=== PATIENT | female | born 1995 | race American Indian/Alaskan Native ===

== ENCOUNTER 2016-12-02 13:36 | Emergency (ER) | payer SELFPAY ==
[2016-12-02 14:07] VITALS: BP 115/77
[2016-12-02] MEDS ORDERED: NACL 0.9% IR ONE (14:53)
[2016-12-02] MEDS ORDERED: XYLOCAINE 1% 20 mL INFILTRATI ONE (14:54)
--- NOTE | 2016-12-02 14:59 | Emergency Department Report ---
ED General Adult HPI - General Chief complaint: Skin/Abscess/Foreign Body Stated complaint: BOIL Time Seen by Provider: 12/02/16 14:45 Source: patient Mode of arrival: Ambulatory Limitations: No Limitations - History of Present Illness Initial comments: Bartholin Cyst recurrent 1-2 daily Onset/Timin -: days(s) Location: genitals (left labia ) Radiation: non-radiation Severity scale (0 -10): 4 Quality: burning, sharp Consistency: constant Improves with: none Worsens with: other (palpation) Associated Symptoms: denies other symptoms Treatments Prior to Arrival: none - Related Data Previous Rx's Medication Instructions Recorded Last Taken Type Acetaminophen 650 mg PO QID PRN #60 capsule 12/02/16 Unknown Rx Cephalexin [Keflex] 500 mg PO Q8HR #30 cap 12/02/16 Unknown Rx ED Review of Systems ROS: Stated complaint: BOIL Other details as noted in HPI Constitutional: denies: chills, fever Eyes: denies: eye pain, eye discharge, vision change ENT: denies: ear pain, throat pain Respiratory: denies: cough, shortness of breath, wheezing Cardiovascular: denies: chest pain, palpitations Endocrine: no symptoms reported Gastrointestinal: denies: abdominal pain, nausea, diarrhea Genitourinary: other (bartholin cyst left labia ). denies: urgency, dysuria, frequency, hematuria, discharge, dyspareunia Musculoskeletal: denies: back pain, joint swelling, arthralgia Skin: denies: rash, lesions Neurological: denies: headache, weakness, paresthesias Psychiatric: denies: anxiety, depression Hematological/Lymphatic: denies: easy bleeding, easy bruising ED Past Medical Hx - Past Medical History Previous Medical History?: No - Surgical History Past Surgical History?: No - Social History Smoking Status: Never Smoker Substance Use Type: None - Medications Home Medications: Home Medications Medication Instructions Recorded Confirmed Last Taken Type Acetaminophen 650 mg PO QID PRN #60 capsule 12/02/16 Unknown Rx Cephalexin [Keflex] 500 mg PO Q8HR #30 cap 12/02/16 Unknown Rx ED Physical Exam - General Limitations: No Limitations General appearance: alert, in no apparent distress - Head Head exam: Present: atraumatic, normocephalic - Eye Eye exam: Present: normal appearance - ENT ENT exam: Present: mucous membranes moist - Neck Neck exam: Present: normal inspection - Respiratory Respiratory exam: Present: normal lung sounds bilaterally. Absent: respiratory distress - Cardiovascular Cardiovascular Exam: Present: regular rate, normal rhythm. Absent: systolic murmur, diastolic murmur, rubs, gallop - GI/Abdominal GI/Abdominal exam: Present: soft, normal bowel sounds - Rectal Rectal exam: Present: deferred - External exam: Present: swelling (left barhtolin cyst ), other (right labia bartholin cyst/abscess ). Absent: erythema, lesions, lacerations, ecchymosis, bleeding Speculum exam: Present: other (pt deferrs to [employer]) - Extremities Exam Extremities exam: Present: normal inspection - Back Exam Back exam: Present: normal inspection - Neurological Exam Neurological exam: Present: alert, oriented X3 - Psychiatric Psychiatric exam: Present: normal affect, normal mood - Skin Skin exam: Present: warm, dry, intact, normal color. Absent: rash ED Course Vital Signs 12/02/16 14:06 Temperature 97.9 F Pulse Rate 88 Respiratory 18 Rate Blood Pressure 115/77 [Right] O2 Sat by Pulse 100 Oximetry - I & D Right Vagina Type of Procedure: Simple (left labial Bartholin Cyst) Site: right labia Bartholin Cyst/abscess Blade Size: 11 I & D Procedure: betadine prep, gauze wick placed ED Medical Decision Making - Medical Decision Making pt is a 21 y/o aaf with hx of barhtolin cyst left recurrent annually sometime biannually pt advises pain and labial swelling x 2 week pt denies vaginal discharge no fever no chills no pelvic pain no n/v , pt endorses having I&D annually with [facility] , pt is currently 6 weeks , seeing [facility] but unable to see [facility] today , pt for I&D of Bartholin Cyst see noted, wick placed iodoform pt tolerlated same with minmal distress, pt will follow up with [facility] [facility] on sunday for wound check and follow up will tx with keflex po qid, tylenol prn pain. pt verbalized understanding and agreement with discharge plan. pt denies abdominal pain no cramping no bleeding no discharge no vaginal lesions no rash no open sores. Critical care attestation.: If time is entered above; I have spent that time in minutes in the direct care of this critically ill patient, excluding procedure time. ED Disposition Clinical Impression: Bartholin cyst Disposition: DC-01 TO HOME OR SELFCARE Is pt being admited?: No Does the pt Need Aspirin: No Condition: Good Instructions: Bartholin Cyst (ED) Additional Instructions: follow up with My [employer] [facility] [phone] on sunday as directed Prescriptions: Acetaminophen 650 mg PO QID PRN #60 capsule PRN Reason: Pain Cephalexin [Keflex] 500 mg PO Q8HR #30 cap Referrals: PRIMARY CARE, [Primary Care Provider] - 3-5 Days Forms: Work/School Release Form(ED) Time of Disposition: 16:24
== END 2016-12-02 16:42 | disposition home or self-care (01) ==
LOC: ED 13:36
DX: N75.0 Cyst of Bartholin's gland (principal)
CPT/HCPCS: 99281